=== PATIENT | male | born 1980 | race Caucasian/White ===

== ENCOUNTER 2018-04-18 21:42 | Observation (INO) | payer SELFPAY ==
[~2018-04-18 21:42] MED LIST: ISOVUE-370 76%-LOCM 1 ML ONE
[2018-04-18 22:25] LABS: #Eosinphils 0.4 thou/uL (0.0-0.7); #Lymphocytes 2.2 thou/uL (1.20-3.40); #Monocytes 0.8 thou/uL (0.11-0.59); %Basophils 0.3 % (0.0-1.0); %Eosinophils 2.9 % (0.0-10.0); %Monocytes 5.3 % (0.0-10.0); %Neutrophils 76.5 % (42.0-75.0); Hemoglobin 14.6 g/dL (14.0-18.0); Mean Corpuscular HGB CONC 34.5 g/dL (32.0-36.0); Mean Corpuscular Hemoglobin 29.3 pg (27.0-31.0); Mean Platelet Volume 7.5 fL (7.4-10.4); Platelet Count 227 thou/uL (130-400); RBC Distribution Width 12.4 % (11.5-14.5); Red Blood Cell (RBC) Count 4.97 mill/uL (4.70-6.10); White Blood Cell (WBC) Count 14.3 thou/uL (4.8-10.8)
[2018-04-18] MEDS ORDERED: Ondansetron HCl/PF 4 MG/2 ML Vial ONE ×2 (22:35→23:40)
[2018-04-18 22:52] LABS: CKMB 0.6 ng/mL (0-6.6); Troponin I Less than 0.010 ng/mL (< 0.028)
[2018-04-18 22:53] LABS: ALT (SGPT) 22 U/L (8-55); AST (SGOT) 17 U/L (5-34); Alkaline Phosphatase 91 U/L (40-150); Anion Gap 13 mmol/L (10-20); BUN (Urea Nitrogen) 9 mg/dL (8.9-20.6); Bilirubin, Total 0.4 mg/dL (0.2-1.2); Calc. Creatinine Clearance 0 mL/min (70-130); Calcium 9.1 mg/dL (7.8-10.44); Carbon Dioxide 25 mmol/L (22-29); Chloride 101 mmol/L (98-107); Estimated GFR-MDRD 83; Globulin 3.5 g/dL (2.4-3.5); Glucose 104 mg/dL (70-105); Potassium 3.8 mmol/L (3.5-5.1); Protein, Total 7.5 g/dL (6.0-8.3); Sodium 135 mmol/L (136-145)
--- NOTE | 2018-04-18 22:54 | RAD ---
CHEST ONE VIEW: 04/18/18 HISTORY: Chest pain. Fever. FINDINGS: The cardiac silhouette is magnified by projection. Pulmonary vasculature is upper limits of normal. M ediastinum is midline. No confluent air space consolidation, or evidence of pneumothorax. Cardiac mo nitor leads overlie the chest. IMPRESSION: No active cardiopulmonary abnormalities are demonstrated. POS: [facility]
[2018-04-18] MEDS ORDERED: Ketorolac Tromethamine 30 MG/ML VIAL ONE (23:40)
[2018-04-18] MEDS ORDERED: Morphine 4 MG/ML VIAL ONE (23:40)
[2018-04-18] MEDS ORDERED: cefTRIAXone\\ROCEPHIN 2 GM VIAL ONE (23:40)
[2018-04-19 01:04] LABS: Bilirubin Negative (Negative); Blood, Urine Negative (Negative); Clarity CLEAR (Clear); Glucose, Urine (Dipstick) Negative (Negative); Leukocyte Negative (Negative); Nitrite Negative (Negative); Protein, Urine (Dipstick) Negative (Neg-Trace); Specific Gravity, Urine 1.035 (1.002-1.036)
[2018-04-19 02:26] LABS: Lactic Acid 0.8 mmol/L (0.5-2.2)
[2018-04-19] MEDS ORDERED: Acetaminophen 325 MG TAB PO PRN (02:56)
[2018-04-19] MEDS: Sodium Chloride 0.9% 1,000 ML IV SCH ×2 (03:31→14:05)
[2018-04-19 03:53] VITALS: BMI 31.2
[2018-04-19] MEDS: Ketorolac Tromethamine 30 MG/ML VIAL IVP PRN ×2 (04:46→10:42)
[2018-04-19 05:43] LABS: Anion Gap 10 mmol/L (10-20); BUN (Urea Nitrogen) 9 mg/dL (8.9-20.6); Calc. Creatinine Clearance 156 mL/min (70-130); Calcium 8.1 mg/dL (7.8-10.44); Carbon Dioxide 22 mmol/L (22-29); Chloride 107 mmol/L (98-107); Estimated GFR-MDRD Greater than 90; Glucose 104 mg/dL (70-105); Potassium 3.9 mmol/L (3.5-5.1); Sodium 135 mmol/L (136-145)
--- NOTE | 2018-04-19 08:16 | CT ---
PRELIMINARY REPORT/[facility]/EMERGENCY AFTER HOURS PROCEDURE: EXAM: CT Left Upper Extremity With Intravenous Contrast EXAM DATE/TIME: 04/19/2018 12:24 AM CLINICAL HISTORY: 37 years old, male; Pain; Wrist; Left; Patient HX: Er 11; Was seen this morning for abscess on hand, iv abx given, dc with oral abx, abscess is double in size, fever. TECHNIQUE: Axial computed tomography images of the left upper extremity with intravenous contrast. Sagittal refo rmatted images were created and reviewed. COMPARISON: No relevant prior studies available. FINDINGS: Bones/joints: No joint effusion. No acute fracture or dislocation. No lytic or blastic bone lesions o r evidence of osteomyelitis. Soft tissues: Generalized subcutaneous edema throughout the hand. There is a 07/16/2022 mm fluid zeferino ection along the dorsum of the hand thenar eminence, consistent with an abscess. No soft tissue gas i s seen. IMPRESSION: Subcutaneous abscess on the dorsum of the hand. Surrounding cellulitis. No evidence of soft tissue ga s forming infection. Thank you for allowing us to participate in the care of your patient. Dictated and Authenticated by: Nan Cast MD 04/19/2018 12:54 AM Central Time ([place] & [place]) FINAL REPORT LEFT UPPER EXTREMITY CT SCAN WITH IV CONTRAST: EMERGENCY AFTER HOURS EXAM TIME: 12:26 a.m. DATE: 04/19/18. FINDINGS/IMPRESSION: There is diffuse soft tissue swelling and edematous changes of the dorsal aspect of the hand. There is an approximately 1.2 x 1.9 x 2.6 cm diameter subcutaneous abscess on the dorsal aspect of the hand between the level of the proximal 1st and 2nd metacarpals. No soft tissue gas. No evidence for acu te fracture or dislocation. POS: [facility]
[2018-04-19] MEDS: Vancomycin HCl 1.25 GM in Sodium Chloride 0.9% 250 ML 250 ML IVPB SCH ×2 (08:26→17:48)
[2018-04-19] MEDS: Ondansetron ODT 4 MG TAB PO PRN ×2 (10:49→18:00)
[2018-04-19 11:13] LABS: #Eosinphils 0.2 thou/uL (0.0-0.7); #Lymphocytes 0.8 thou/uL (1.20-3.40); #Monocytes 0.6 thou/uL (0.11-0.59); %Basophils 0.2 % (0.0-1.0); %Eosinophils 1.6 % (0.0-10.0); %Lymphocytes 5.9 % (21.0-51.0); %Monocytes 4.1 % (0.0-10.0); %Neutrophils 88.3 % (42.0-75.0); Hemoglobin 12.4 g/dL (14.0-18.0); Mean Corpuscular HGB CONC 34.6 g/dL (32.0-36.0); Mean Corpuscular Hemoglobin 29.4 pg (27.0-31.0); Mean Corpuscular Volume 85.2 fL (78.0-98.0); Mean Platelet Volume 7.3 fL (7.4-10.4); Platelet Count 162 thou/uL (130-400); RBC Distribution Width 12.5 % (11.5-14.5); Red Blood Cell (RBC) Count 4.23 mill/uL (4.70-6.10); White Blood Cell (WBC) Count 13.6 thou/uL (4.8-10.8)
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
[2018-04-19] MEDS ORDERED: Acetaminophen/Codeine 30-300mg Tablet PO PRN ×3 (14:32→15:07)
--- NOTE | 2018-04-19 14:35 | CON ---
DATE OF CONSULTATION: 04/19/2018 HISTORY OF PRESENT ILLNESS: Mr. Nuno is a 37-year-old right-handed white male, who injected some meth into the dorsal aspect of the first webspace of the left hand. Over the next few days, the pat saadia developed swelling, erythema, and presented to the emergency room last night. CAT scan showed a superficial abscess in the first webspace. The ER doctor performed incision and drainage of the abs cess and cultures were obtained. The patient has been afebrile since he has been in the hospital. Esperanza cunningham was started on IV vancomycin. CURRENT MEDICATIONS: [place] and clindamycin. ALLERGIES: None. PHYSICAL EXAMINATION: VITAL SIGNS: Temperature in the emergency room 99.7, pulse 103, blood pressure 121/71. EXTREMITIES: Examination of the left hand shows moderate swelling in the entire hand. The patient i s able to flex and extend all of his digits, although they are limited by the swelling. There is susan e erythema and swelling over the first webspace dorsally. I am able to express purulent drainage thr ough two of the incisions performed by the emergency room doctor, there is a quarter-inch Salvatore avni in in place. There is good drainage. The left hand is neurovascularly intact. IMPRESSION: Status post abscess in the first webspace of the left hand, which has had excellent inci minor and drainage by the emergency room physician. PLAN: No further surgery is needed by me. The hospitalist, who is also infectious disease doctor, w ill take care of any antibiotics whether they be IV or p.o. I will follow the patient while he is in the hospital.
[2018-04-19] MEDS: Acetaminophen/Codeine 30-300mg Tablet PO PRN (17:57)
[2018-04-19] MEDS ORDERED: Cefepime 2 GM in Sodium Chloride 0.9% 100 ML IVPB SCH (21:00)
[2018-04-20] MEDS: Ketorolac Tromethamine 30 MG/ML VIAL IVP PRN ×2 (00:01→06:03)
[2018-04-20] MEDS: Vancomycin HCl 1.75 GM in Sodium Chloride 0.9% 500 ML IVPB SCH ×2 (00:35→09:05)
[2018-04-20] MEDS: Acetaminophen/Codeine 30-300mg Tablet PO PRN ×2 (06:06→11:30)
[2018-04-20 11:45] VITALS: BP 125/62; TEMP 97.4
[2018-04-20] MEDS ORDERED: Cefepime 2 GM in Sodium Chloride 0.9% 100 ML IVPB SCH (15:00)
--- NOTE | 2018-04-21 12:50 | DIS ---
DATE OF ADMISSION: 04/19/2018 DATE OF DISCHARGE: 04/20/2018 PRIMARY CARE PHYSICIAN: None. DISCHARGE DIAGNOSES: 1. Left hand first, second interspace, abscess and cellulitis secondary to IV drug use. 2. Polysubstance abuse. 3. History of heart attack/myocardial infarction, likely related to drug use. CONSULTATIONS: Orthopedics, Candelario Pimentel M.D. PROCEDURES: Incision and drainage and [place] drain placement in the emergency department by the ER staff. HISTORY AND PHYSICAL: Mr. Nuno is a 37-year-old gentleman who has history of injection methamphetamine use who had been clean for a couple years. He decided to reuse 4 days prior to admission. After injection, he started to have increased redness and swelling to the site and was admitted to the emergency department. There he was found to have an elevated white count, evidence of fluctuance and underwent incision and drainage. We were called for admission. HOSPITAL COURSE: The patient was seen and examined by the emergency staff. We were called for admission. The patient was accepted to the obs unit and patient was a holdover from the marketing technology specialist for me to admit. The patient was doing well. Gram stain initially showed gram positive cocci in chains and gram negative rods. Repeat Gram stain at the bedside by Dr. Pimentel during his consultations showed gram positive cocci in chains and clusters as well as gram positive rods. No gram negative rods seen. Cultures are still pending. The patient was started on vancomycin and improved. The pain was controlled on oral Tylenol No. 3 and today the patient was stable for discharge with outpatient followup. PHYSICAL EXAMINATION: The patient was seen and examined on the day of discharge. Discharge plan and disposition was discussed with the patient face- to-face at the bedside. DISCHARGE MEDICATIONS: 1. Bactrim-DS 2 tablets p.o. b.i.d. for 2 weeks. 2. Tylenol No. 3, 1-2 every 4 hours as needed for pain, prescription for 30 tablets with no refills sent. FOLLOWUP APPOINTMENTS: 1. Dr. Pimentel within a week. 2. Primary care physician, if he has one. DISCHARGE CONDITION: Stable. DISPOSITION: Discharged home via private vehicle. DISCHARGE ACTIVITY: As tolerated. DISCHARGE DIET: No restrictions. The patient was counseled on the need to cessate injection drug use. [facility]
== END 2018-04-20 12:23 | disposition home or self-care (01) ==
LOC: ERS 21:42 → 2SW 04-19 03:08
PROVIDERS: ADMIT Internal Medicine; ATTEND Internal Medicine
DX: L03.112 Cellulitis of left axilla (principal); L02.512 Cutaneous abscess of left hand; F17.210 Nicotine dependence, cigarettes, uncomplicated; F19.10 Other psychoactive substance abuse, uncomplicated; I25.2 Old myocardial infarction
CPT/HCPCS: 10060; 36415; 71045; 80048; 80202; 81003; 82553; 83605; 83735; 84484; 85025; 87040; 87070; 87077; 87086; 87205; 93005; 94760; 96360; 96361; 96365; 96366; 96367; 96374; 96375; 96376; A4216; G0378; J0692; J0696; J1885; J2270; J2405; J3370; J7050; Q0162